=== PATIENT | male | born 1950 | race Caucasian/White ===

== ENCOUNTER 2016-07-16 06:46 | Day surgery (SDC) | payer OTHER ==
[2016-07-13 12:40] VITALS: BMI 34.4
[~2016-07-16 06:46] MED LIST: BUPIVACAINE HCL/PF 0.5% (5MG/ML) 10 ML VIAL IJ ONE
[2016-07-16] MEDS ORDERED: DEXAMETHASONE SOD PHOSPHATE 4 MG/1 ML VIAL ONE (08:24)
[2016-07-16] MEDS ORDERED: SODIUM CHLORIDE 0.9% P/F 10 ML VIAL IJ ONE (08:24)
[2016-07-16] MEDS ORDERED: ceFAZolin SODIUM 1 GM VIAL ONE (08:24)
[2016-07-16] MEDS ORDERED: KETOROLAC TROMETHAMINE 30 MG/1 ML VIAL ONE ×2 (08:24→09:48)
[2016-07-16] MEDS ORDERED: MIDAZOLAM HCL 2 MG/2 ML SINGLE DOSE VIAL ONE (08:25)
[2016-07-16] MEDS ORDERED: ePHEDrine SULFATE 50 MG/1 ML AMPULE ONE (08:27)
[2016-07-16] MEDS ORDERED: BUPIVACAINE HCL/PF 0.5% (5MG/ML) 10 ML VIAL ONE (08:56)
[2016-07-16] MEDS ORDERED: ceFAZolin SODIUM 1 GM VIAL IVPB ONE (09:18)
[2016-07-16] MEDS ORDERED: PROPOFOL 20 ML ONE ×2 (09:23)
[2016-07-16] MEDS ORDERED: BUPIVACAINE HCL/PF 0.5% (5MG/ML) 10 ML VIAL IJ ONE (09:48)
[2016-07-16] MEDS ORDERED: ONDANSETRON 4 MG/2 ML VIAL IVPUSH PRN (10:09)
[2016-07-16] MEDS ORDERED: oxyCODONE HCL 5 MG TABLET PO PRN ×2 (10:09→11:16)
[2016-07-16] MEDS ORDERED: ACETAMINOPHEN 1000 MG/100 ML VIAL (NON FORMULARY) IVPB ONE (10:10)
[2016-07-16] MEDS ORDERED: LACTATED RINGERS SOLUTION 1,000 ML IV SCH (10:15)
[2016-07-16] MEDS ORDERED: OXYCODONE/APAP 5/325MG COMBO TABLET PO PRN (10:21)
[2016-07-16] MEDS ORDERED: ACETAMINOPHEN 325 MG TABLET (FP) PO PRN (11:16)
--- NOTE | 2016-07-16 11:28 | HP ---
DATE OF ADMISSION: 07/16/2016 HISTORY OF PRESENT ILLNESS: Patient is a 66-year-old male with history of metastatic prostate cancer, he was diagnosed on March 16. He came to the office complaining of severe low back pain, had an abnormal digital rectal examination, and PSA of 1345. A biopsy revealed high-grade prostate cancer. A bone scan revealed extensive metastatic disease. Patient has had a right tense painful hydrocele. ALLERGIES/MEDICATIONS: He denies any allergies, medications prior to seeing me. SOCIAL HISTORY: He denies ethanolism or tobacco. PAST SURGICAL HISTORY: He denies any past surgery. HOSPITAL COURSE: The patient was commenced on total androgen ablation including Lupron Depot and Casodex 50 mg daily. PHYSICAL EXAMINATION: General: Revealed a well-developed adult male in no apparent distress. Abdomen: Soft. There was no CVA tenderness. Genitalia: Revealed normal uncircumcised talus. Left testicle was normal in size and consistency. Right hemiscrotum was tense, large, and swollen. There was positive transillumination. Rectal: Revealed a rock-hard fixed prostate. Extremities: Revealed full range of motion with no cyanosis, clubbing, or edema. IMPRESSION: At present is metastatic prostate cancer on total androgen ablation and a symptomatic left scrotal hydrocele. PLAN: Is to undergo an elective hydrocelectomy, and patient is to continue on total androgen ablation. DESIREE FUENTES M.D. [id number]
--- NOTE | 2016-07-16 11:56 | OP ---
DATE OF OPERATION: 07/16/2016 OPERATIVE PROCEDURE: Right hydrocelectomy PREOPERATIVE DIAGNOSIS: Tender right hydrocele POSTOPERATIVE DIAGNOSIS: Tender right hydrocele SURGEON: Nuzhat Arce MD ANESTHESIA: General. PROCEDURE: Under above-stated anesthesia, patient was prepped and draped in the usual sterile manner. He was placed in the supine position. A right hemiscrotal transverse incision was made. This was carried down to the skin and subcutaneous tissue. The tunica vaginalis appeared to be tense. An incision was made in the tunica, and approximately 80 mL of straw-colored fluid was drained. The tunica was opened widely, and a large segment was sent to pathology. Hemostasis was secured with electrocoagulation. The testicle appeared to be within normal limits. The appendix testis was prominent; therefore, it was removed with cautery. The hydrocele sac was then everted on itself and closed with 3-0 running interlocking Vicryl suture ligatures. No active bleeding was noted. The testis was placed back into the right hemiscrotum. The wound was copiously irrigated. A 1/4 inch Elias was placed in the right hemiscrotum and brought out a separate stab wound incision in the most dependent portion of the right hemiscrotum. The Hudson was anchored with a 3-0 Vicryl suture ligature. The scrotal incision was closed with two layers. The first layer was 3-0 Vicryl suture ligatures. The skin was closed with 3-0 mattress Chromic sutures. A pressure dressing was applied. Patient tolerate the procedure well. He returned to the recovery room in good condition. Tod [id number]
[2016-07-16 14:52] VITALS: BP 128/80
[2016-07-16 15:08] VITALS: PULSE 68; TEMP 98.8
--- NOTE | 2016-07-19 11:08 | PATH ---
Surgical Pathology Report Patient Name: BRITTANI HANSEN [facility]. Rec. #: [id number] /Age/Gender: 1950 (Age: 66) / M Account: [id number] Location: [facility] SURGICAL Taken: 07/16/2016 Received: 07/16/2016 Reported: 07/19/2016 Physicians: Nuzhat Arce M.D. Specimen(s) Received A: HYDROCELE SAC B: APPENDIX RT. TESTIS Clinical History Right hydrocele Final Diagnosis A. RIGHT HYDROCELE SAC, EXCISION: FIBROMEMBRANOUS TISSUE CONSISTENT WITH HYDROCELE SAC. B. RIGHT APPENDIX TESTIS, EXCISION: PORTION OF APPENDIX TESTIS. Electronically Signed Lui Parks M.D. Gross Description A. Received in formalin labeled hydrocele sac is a fragment of serrano fibromembranous tissue measuring 3 x 1.2 x 0.2 cm. Supervisor Gluing sections are submitted in one cassette. B. Received in formalin labeled appendix of right testes is a single fragment of soft tissue measuring 0.5 cm. in greatest dimension. Entirely submitted in one cassette. (AF) [email or web address]/07/18/2016
--- NOTE | 2016-07-19 13:26 | PATH ---
Cytology Non-Gynecological Report Patient Name: BRITTANI HANSEN [facility]. Rec. #: [id number] /Age/Gender: 1950 (Age: 66) / M Account: [id number] Location: [facility] SURGICAL Taken: 07/16/2016 Received: 07/16/2016 Reported: 07/19/2016 Physicians: Nuzhat Arce M.D. Specimen(s) Received RIGHT HYDROCELE Clinical History Right hydrocele Final Diagnosis RIGHT HYDROCELE FLUID: NO MALIGNANT CELLS IDENTIFIED. FEW MESOTHELIAL CELLS AND PROTEINACEOUS MATERIAL. Electronically Signed Bryan Carranza M.D. Gross Description Received is 0.2 cc of yellow fluid fresh. One cytofunnel slide and one cell block are made.
== END 2016-07-16 14:30 | disposition home or self-care (01) ==
LOC: JASU-SURG 06:46
PROVIDERS: ATTEND Urology
PROC: 0VB60ZZ Excision of Right Tunica Vaginalis, Open Approach (ICD-10-PCS; principal; 2016-07-16 08:00)
DX: N43.3 Hydrocele, unspecified (principal)
CPT/HCPCS: 87070; 87075; 87205; 88108; 88302-TC; 88305-TC; 94010; 94760

== ENCOUNTER 2019-03-16 07:58 | Day surgery (SDC) | payer OTHER ==
[2019-03-16 09:11] LABS: MCH 29.8 pg (25.7-33.7); MCHC 33.2 g/dl (32.0-35.9); MEAN CELL VOLUME 89.8 fl (80-96); MEAN PLT VOLUME 7.8 fl (7.5-11.1); PLATELET COUNT 60 K/MM3 (134-434); RDW 18.6 % (11.9-15.9); WHITE BLOOD COUNT 2.2 K/mm3 (4.0-10.0)
[2019-03-16 09:57] LABS: BILIRUBIN,TOTAL 0.5 mg/dL (0.2-1); BLOOD UREA NITROGEN 15.8 mg/dL (7-18); CALCIUM 7.3 mg/dL (8.5-10.1); CREATININE 0.8 mg/dL (0.55-1.3); POTASSIUM 3.3 mmol/L (3.5-5.1); TOT PROT 5.3 g/dl (6.4-8.2)
[2019-03-16 13:42] VITALS: BP 110/53; PULSE 89; TEMP 97.9
[2019-03-16 20:07] LABS: BASO % 0.7 % (0-2.0); EOS % 5.2 % (0-4.5); HEMATOCRIT 23.7 % (35.4-49); HEMOGLOBIN 7.6 GM/dL (11.7-16.9); LYMPH % 15.1 % (8-40); MCH 29.1 pg (25.7-33.7); MCHC 32.1 g/dl (32.0-35.9); MEAN CELL VOLUME 90.4 fl (80-96); MEAN PLT VOLUME 8.2 fl (7.5-11.1); MONO % 13.8 % (3.8-10.2); NEUT % 65.2 % (42.8-82.8); PLATELET COUNT 56 K/MM3 (134-434); RBC 2.62 M/mm3 (4.00-5.60); RDW 16.7 % (11.9-15.9); WHITE BLOOD COUNT 2.3 K/mm3 (4.0-10.0)
[2019-03-16 21:28] LABS: PLATELET ESTIMATE DECREASED
== END 2019-03-16 17:40 | disposition home or self-care (01) ==
LOC: JONCBLOOD 07:58 → J7W 07:58 → JONCBLOOD 17:40
PROVIDERS: ATTEND Internal Medicine Hematology & Oncology
PROC: 30233N1 Transfusion of Nonautologous Red Blood Cells into Peripheral Vein, Percutaneous Approach (ICD-10-PCS; principal; 2019-03-16)
DX: C61 Malignant neoplasm of prostate (principal); C79.51 Secondary malignant neoplasm of bone; D57.3 Sickle-cell trait
CPT/HCPCS: 36415; 36430; 36511; 80053; 83735; 85025; 85027; 86850; 86900; 86901; 86922; P9038; P9058

== ENCOUNTER 2019-03-27 10:12 | Day surgery (SDC) | payer OTHER ==
[2019-03-27 11:16] LABS: BASO % 0.8 % (0-2.0); EOS % 3.9 % (0-4.5); HEMATOCRIT 20.3 % (35.4-49); LYMPH % 18.4 % (8-40); MCHC 33.3 g/dl (32.0-35.9); MEAN CELL VOLUME 89.9 fl (80-96); MEAN PLT VOLUME 8.4 fl (7.5-11.1); MONO % 10.7 % (3.8-10.2); NEUT % 66.2 % (42.8-82.8); PLATELET COUNT 57 K/MM3 (134-434); RBC 2.25 M/mm3 (4.00-5.60); RDW 18.3 % (11.9-15.9); WHITE BLOOD COUNT 2.1 K/mm3 (4.0-10.0)
[2019-03-27 11:18] LABS: HEMOGLOBIN 6.8 GM/dL (11.7-16.9)
[2019-03-27] MEDS ORDERED: oxyCODONE HCL 5 MG TABLET PO PRN ×2 (11:36→11:37)
[2019-03-27 12:04] LABS: ALBUMIN 3.5 g/dl (3.4-5.0); BILIRUBIN,TOTAL 0.8 mg/dL (0.2-1); BLOOD UREA NITROGEN 20.1 mg/dL (7-18); CALCIUM 8.5 mg/dL (8.5-10.1); CREATININE 0.9 mg/dL (0.55-1.3); MAGNESIUM 2.4 mg/dL (1.8-2.4); POTASSIUM 4.5 mmol/L (3.5-5.1); TOT PROT 6.6 g/dl (6.4-8.2)
[2019-03-27 14:15] VITALS: BP 124/63; PULSE 83; TEMP 98.6
--- NOTE | 2019-03-27 19:09 | HP ---
Admitting History and Physical - Advance Directives Advance Directives: Yes: Health Care Proxy - Smoking History Smoking history: Never smoked - Alcohol/Substance Use Hx Alcohol Use: No Home Medications - Allergies Allergies/Adverse Reactions: Allergies Allergy/AdvReac Type Severity Reaction Status Date / Time No Known Drug Allergies Allergy Verified 07/16/16 07:33 - Home Medications Home Medications: Ambulatory Orders Bicalutamide [Casodex] 50 mg PO DAILY 07/13/16 Tamsulosin HCl 0.4 mg PO HS 07/13/16 Physical Examination Vital Signs: Vital Signs Temperature 98.6 F 03/27/19 10:12 Pulse Rate 83 03/27/19 10:12 Respiratory Rate 118 H 03/27/19 10:12 Blood Pressure 124/63 03/27/19 10:12 O2 Sat by Pulse Oximetry (%) Labs: CBC, BMP 03/27/19 10:35 03/27/19 10:35 Assessment/Plan Patient seen and examined 69 year old with metastatic prostate ca with symptomatic anemia Has recently completed course of RT to spine. Has pancytopenia Last Vital Signs Temp Pulse Resp BP Pulse Ox 98.6 F 83 118 H 124/63 03/27/19 10:12 03/27/19 10:12 03/27/19 10:12 03/27/19 10:12 HEENT: ALEXIS, EOM Intact Oropharynx: No thrush, No mucositis Neck: Supple Cor: RSR, No murmurs, No gallops Lungs: Clear to P&A Abd: Soft, Normal bowel sounds, No organomegaly Ext:No significant edema Skin: No rashes, Integument intact CBC, BMP 03/27/19 10:35 03/27/19 10:35 Impression: Metastatic prostate ca - Symptomatic anemia Plan: transfuse 2 units of packed cells. outpatient follow up.
[2019-03-27 22:20] LABS: BASO % 0.6 % (0-2.0); EOS % 4.5 % (0-4.5); HEMATOCRIT 23.3 % (35.4-49); HEMOGLOBIN 7.7 GM/dL (11.7-16.9); LYMPH % 17.4 % (8-40); MCH 29.5 pg (25.7-33.7); MEAN CELL VOLUME 89.4 fl (80-96); MEAN PLT VOLUME 7.1 fl (7.5-11.1); MONO % 12.3 % (3.8-10.2); NEUT % 65.2 % (42.8-82.8); PLATELET COUNT 42 K/MM3 (134-434); RBC 2.61 M/mm3 (4.00-5.60); RDW 16.7 % (11.9-15.9); WHITE BLOOD COUNT 2.4 K/mm3 (4.0-10.0)
[2019-03-27 23:31] LABS: ANISOCYTOSIS 1+; MACROCYTOSIS 1+; OVALOCYTE 1+; PLATELET ESTIMATE MOD DECREASED; TEAR DROP CELLS 1+
== END 2019-03-27 22:48 | disposition home or self-care (01) ==
LOC: JONCBLOOD 10:12 → J7W 10:13 → JONCBLOOD 22:48
PROVIDERS: ATTEND Internal Medicine Hematology & Oncology
PROC: 30233N1 Transfusion of Nonautologous Red Blood Cells into Peripheral Vein, Percutaneous Approach (ICD-10-PCS; principal; 2019-03-27)
DX: C61 Malignant neoplasm of prostate (principal); D64.9 Anemia, unspecified; D61.818 Other pancytopenia
CPT/HCPCS: 36415; 36430; 36511; 80053; 83735; 85025; 86850; 86900; 86901; 86922; P9038; P9058